=== PATIENT | female | born 1940 | race Caucasian/White ===

== ENCOUNTER 2019-06-10 04:48 | Inpatient (IN) ==
--- NOTE | 2019-06-05 08:20 | EKG Report ---
Test Performed on : 06/05/2019 07:29:07 AM Test Reason : PAT Blood Pressure : / mmHG Vent. Rate : 089 BPM Atrial Rate : 089 BPM P-R Int : 152 ms QRS Dur : 084 ms QT Int : 348 ms P-R-T Axes : 079 082 078 degrees QTc Int : 423 ms Normal sinus rhythm. Possible Left atrial enlargement Septal infarct , age undetermined Abnormal ECG No previous ECGs available Confirmed by Alejandro HUYNH, Tye ([id number]) on 06/05/2019 9:12:17 AM
[2019-06-05 08:22] LABS: URINE SOURCE CLEAN CATCH
[2019-06-05 08:36] LABS: BASO# 0.03 X1000 (0.0-0.2); BASO% 0.4 % (0.0-0.8); EOS# 0.22 X1000 (0.0-0.7); EOS% 2.8 % (0.0-10.0); HEMATOCRIT 38.5 % (37.0-47.0); HEMOGLOBIN 12.8 g/dL (12.0-16.0); IMM GRAN# 0.02 X1000 (0.0-0.04); IMM GRAN% 0.3 % (0.0-0.5); LYMPH# 2.26 X1000 (1.2-3.4); LYMPH% 28.3 % (20.5-51.1); MCHC 33.2 g/dL (33-37); MCV 90.2 FL (81-99); MONO# 0.63 X1000 (0.11-0.59); MONO% 7.9 % (1.7-9.3); MPV 9.7 FL (7.4-10.4); NEUT# 4.82 X1000 (1.4-6.5); NEUT% 60.3 % (42.2-75.2); PLT 289 X1000 (130-400); RBC 4.27 XMIL (4.2-5.4); RDW 13.7 % (11.5-14.5); WBC 7.98 X1000 (4.8-10.8)
[2019-06-05 08:42] LABS: BILIRUBIN URINE NEGATIVE (NEGATIVE); BLOOD URINE NEGATIVE (NEGATIVE); COLOR YELLOW; GLUCOSE URINE NEGATIVE (NEGATIVE); KETONE URINE NEGATIVE (NEGATIVE); LEUKOCYTES URINE NEGATIVE (NEGATIVE); NITRITE URINE NEGATIVE (NEGATIVE); PROTEIN URINE NEGATIVE (NEGATIVE); SP GRAVITY URINE 1.019; TURBIDITY URINE CLEAR (CLEAR); UROBILINOGEN URINE NORMAL (NORMAL)
[2019-06-05 08:45] LABS: INR 0.85; PROTIME 12.3 Seconds (11.0-16.0); PTT 28.9 Seconds (22.3-41.8); UR EPITHELIAL CELLS <10 /HPF (<10); URINE BACTERIA NEGATIVE /HPF; URINE RBC <10 /HPF (<10); URINE WBC <10 /HPF (<10)
[2019-06-05 08:52] LABS: HEMOGLOBIN A1C 5.5 % (4.8-6.0)
[2019-06-05 08:53] LABS: AGAP 10; ALBUMIN 4.5 g/dL (3.5-5.0); BUN 12 mg/dL (8-22); CALCIUM 9.5 mg/dL (8.8-10.2); CHLORIDE 98 mmol/L (98-107); COSMO 268; CREATININE 0.8 mg/dL (0.5-0.9); ESTIMATED GFR > 60; GLUCOSE 93 mg/dL (70-104); POTASSIUM 4.4 mmol/L (3.5-5.1); SODIUM 134 mmol/L (136-145); TCO2 26 mmol/L (25-35)
[2019-06-10] MEDS ORDERED: REGLAN ONE (09:03)
[2019-06-10] MEDS ORDERED: COLACE ONE (09:03)
[2019-06-10] MEDS ORDERED: PEPCID ONE (09:03)
[2019-06-10] MEDS ORDERED: CELEBREX ONE (09:04)
[2019-06-10] MEDS ORDERED: LYRICA ONE (09:04)
[2019-06-10] MEDS ORDERED: KEFZOL 1 GM/D5W 1 GM/50 ML IVPB ONE (09:04)
[2019-06-10] MEDS ORDERED: 1/2 NS 500 ML ONE (09:04)
[2019-06-10] MEDS ORDERED: XYLOCAINE-MPF 2% ONE (09:05)
[2019-06-10] MEDS ORDERED: ROBINUL ONE (09:05)
[2019-06-10] MEDS ORDERED: DECADRON ONE (09:10)
[2019-06-10] MEDS ORDERED: FENTANYL ONE (09:27)
[2019-06-10] MEDS ORDERED: SODIUM CHLORIDE 0.9% 10 ML ONE (09:54)
[2019-06-10] MEDS ORDERED: DIPRIVAN 1% 500 MG/50 ML BOTTLE ONE (10:26)
[2019-06-10] MEDS ORDERED: DURAMORPH ONE (10:37)
[2019-06-10] MEDS ORDERED: TORADOL ONE (10:37)
[2019-06-10] MEDS ORDERED: MARCAINE 0.25% PF ONE (10:38)
[2019-06-10] MEDS ORDERED: CYKLOKAPRON 1,000 MG/NS 1,000 MG/100 ML IVPB ONE (10:38)
[2019-06-10] MEDS ORDERED: NEOSPORIN G.U. IRRIGANT ONE (10:38)
[2019-06-10] MEDS ORDERED: EXPAREL 1.3% ONE (10:38)
[2019-06-10] MEDS ORDERED: SODIUM CHLORIDE 0.9% ONE (10:38)
[2019-06-10] MEDS ORDERED: VERSED ONE (10:58)
[2019-06-10] MEDS ORDERED: ZOFRAN ONE (12:02)
[2019-06-10] MEDS ORDERED: OFIRMEV 1000 MG/ISOTONIC SOLN 1,000 MG/100 ML BOTTLE ONE (12:02)
[2019-06-10 12:57] LABS: URINE SOURCE CATH
[2019-06-10 13:02] LABS: BILIRUBIN URINE NEGATIVE (NEGATIVE); BLOOD URINE NEGATIVE (NEGATIVE); COLOR YELLOW; GLUCOSE URINE NEGATIVE (NEGATIVE); KETONE URINE 20 mg/dL (NEGATIVE); LEUKOCYTES URINE NEGATIVE (NEGATIVE); NITRITE URINE NEGATIVE (NEGATIVE); PH URINE 6.5; PROTEIN URINE NEGATIVE (NEGATIVE); SP GRAVITY URINE 1.009; TURBIDITY URINE CLEAR (CLEAR); UROBILINOGEN URINE NORMAL (NORMAL)
[2019-06-10 13:03] LABS: UR EPITHELIAL CELLS <10 /HPF (<10); URINE BACTERIA NEGATIVE /HPF; URINE RBC <10 /HPF (<10); URINE WBC <10 /HPF (<10)
[2019-06-10] MEDS ORDERED: NS 1,000 ML ONE (14:06)
[2019-06-10] MEDS ORDERED: MILK OF MAGNESIA PO PRN (15:45)
[2019-06-10] MEDS ORDERED: OXY IR PO PRN ×2 (15:45)
[2019-06-10] MEDS ORDERED: ZOFRAN IV PRN (15:45)
[2019-06-10] MEDS ORDERED: ZOFRAN ODT PO PRN (15:45)
[2019-06-10] MEDS ORDERED: MORPHINE IV PRN ×3 (15:45)
[2019-06-10] MEDS ORDERED: CYKLOKAPRON 1,000 MG in NS 100 ML IV ONE (18:10)
[2019-06-10] MEDS ORDERED: REQUIP PO SCH (19:15)
[2019-06-10] MEDS ORDERED: BONIVA IV SCH (19:15)
--- NOTE | 2019-06-10 20:32 | OPERATIVE NOTE ---
PROCEDURE DATE: 06/10/2019 PREOPERATIVE DIAGNOSIS: Right hip degenerative joint disease. POSTOPERATIVE DIAGNOSIS: Right hip degenerative joint disease. PROCEDURE PERFORMED: Right anterior total hip arthroplasty using a [facility] size 10 standard offset stem with a neutral neck length 36 mm head, a 50 hemispherical shell, two 6.5 cancellous screws of 40 and 25 mm, and a 36 mm inside diameter liner. ANESTHESIA: Spinal. SURGEON: Atif Jimenez MD. ASSISTANTS: ANGELA Pinzon. COMPLICATIONS: None. BLOOD LOSS: Minimal. DRAINS: Hemovac x 1. DESCRIPTION OF PROCEDURE: The patient was brought to the operative suite and placed in the supine position. After successful administration of spinal anesthesia the patient was placed on the OSI table in the usual position for right hip. The right hip was then prepped and draped in the usual sterile fashion. A longitudinal incision was made beginning 3 cm distal and 3 cm lateral to the anterior superior iliac spine, seen distally and slightly laterally 8 cm, dissected sharply through the skin and subcutaneous tissue down to the tensor fascia. The tensor fascia was incised and dissected bluntly down to deep tensor fascia. The deep tensor fascia was incised and the circumflex vessels were electrocauterized exposing the anterior capsule. A T capsulotomy was performed exposing the femoral neck. A femoral neck cut was made with an oscillating saw. The femoral head was removed with a power corkscrew. The labrum was resected. The acetabulum was serially reamed to a 52 to accept a 52 cup. The 52 cup was then driven into place in the proper amount of inclination and anteversion, and two 6.5 cancellous screws were placed, a 40 mm superiorly and a 25 mm posterior superiorly, and then a 36 mm inside diameter acetabular liner was locked onto the shell. Attention was directed to the femur, it was externally rotated, extended, adducted, and elevated out of the wound with the hook on the OSI bed. The lateral neck was rongeured. The canal was serially broached to a size 10. A size 10 standard offset neutral neck length was trialed and found be excellent leg length to offset fit and feel of the stem and stability of the hip. The trial was removed. Definitive stem was seated on the femur. The ceramic head was seated onto the Donahue taper and then the hip was reduced, it was again found to be in excellent position. The hip was copiously infiltrated with Exparel, including the posterior capsule, anterior capsule, anterior musculature and subcutaneous tissue. The hip was copiously irrigated with normal saline containing irrigant and Vashe irrigation. A drain was placed deep to the tensor fascia and buried around the stem neck. The anterior capsule was repaired with 0 V- Loc. The tensor fascia was repaired with 0 V-Loc. The skin edge was approximated with 2-0 Vicryl and 4 Monocryl and then closed with Prineo. A sterile dressing was applied. The patient tolerated the procedure well without complications. At the end of the procedure all counts were correct x2. The patient was transferred to the recovery room in stable condition. cc: Atif Jimenez MD MTDD
[2019-06-10] MEDS: KEFZOL 1 GM/D5W 1 GM/50 ML IVPB IV SCH (20:35)
[2019-06-10] MEDS: PERIDEX MT SCH (20:35)
[2019-06-10] MEDS: COLACE PO SCH (20:36)
[2019-06-10] MEDS: CELEBREX PO SCH (20:36)
[2019-06-10] MEDS: ULTRAM PO SCH (20:37)
[2019-06-10] MEDS: LYRICA PO SCH (20:37)
[2019-06-10] MEDS: CALTRATE 600 + D PO SCH (20:38)
[2019-06-10] MEDS: NS 1,000 ML IV SCH (20:39)
[2019-06-10] MEDS ORDERED: VITAMIN C PO SCH (21:00)
[2019-06-10] MEDS: TYLENOL PO SCH (21:00)
[2019-06-10] MEDS ORDERED: ZYRTEC PO SCH (21:00)
[2019-06-10] MEDS ORDERED: PRAVACHOL PO SCH (21:00)
[2019-06-10] MEDS ORDERED: GLUCOSAMINE 500 MG/CHONDROITIN 400 MG PO SCH (21:00)
[2019-06-11] MEDS: TYLENOL PO SCH ×2 (04:35→12:48)
[2019-06-11] MEDS: XARELTO PO SCH ×2 (04:35→06:28)
[2019-06-11] MEDS: ULTRAM PO SCH ×2 (04:35→12:39)
[2019-06-11] MEDS: KEFZOL 1 GM/D5W 1 GM/50 ML IVPB IV SCH (04:36)
[2019-06-11 06:07] LABS: HEMATOCRIT 29.6 % (37.0-47.0); HEMOGLOBIN 9.9 g/dL (12.0-16.0)
[2019-06-11 06:18] LABS: AGAP 13; BUN 9 mg/dL (8-22); CALCIUM 8.9 mg/dL (8.8-10.2); CHLORIDE 99 mmol/L (98-107); COSMO 270; CREATININE 0.6 mg/dL (0.5-0.9); ESTIMATED GFR > 60; GLUCOSE 129 mg/dL (70-104); POTASSIUM 4.3 mmol/L (3.5-5.1); SODIUM 135 mmol/L (136-145); TCO2 23 mmol/L (25-35)
[2019-06-11] MEDS: NS 1,000 ML IV SCH (06:28)
[2019-06-11 07:29] VITALS: BP 143/60
[2019-06-11] MEDS ORDERED: DECADRON IV ONE (09:00)
[2019-06-11] MEDS ORDERED: CENTRUM SILVER PO SCH (09:00)
[2019-06-11] MEDS ORDERED: VITAMIN D PO SCH (09:00)
[2019-06-11] MEDS ORDERED: VICON-C PO SCH (09:00)
[2019-06-11] MEDS ORDERED: OCUVITE LUTEIN & ZEAXANTHIN PO SCH (09:00)
[2019-06-11] MEDS ORDERED: SINGULAIR PO SCH (09:00)
[2019-06-11] MEDS ORDERED: PAXIL PO SCH (09:00)
[2019-06-11] MEDS ORDERED: PEPCID PO SCH (09:00)
[2019-06-11] MEDS: CELEBREX PO SCH (12:38)
[2019-06-11] MEDS: LYRICA PO SCH (12:38)
[2019-06-11] MEDS: CALTRATE 600 + D PO SCH (12:38)
[2019-06-11] MEDS: COLACE PO SCH (12:38)
[2019-06-11] MEDS: PERIDEX MT SCH (12:39)
--- NOTE | 2019-06-11 20:41 | DISCHARGE SUMMARY ---
ADMISSION DATE: 06/10/2019 DISCHARGE DATE: 06/11/2019 DISCHARGE DIAGNOSIS: Right hip degenerative joint disease status post right anterior total hip arthroplasty. DISCHARGE MEDICATIONS: See discharge medication list. DISPOSITION: The patient was discharged home with home health physical therapy. Instructed to return for any signs or symptoms of infection, paresthesias or thrombosis. Instructed to return to see Dr. Jimenez next . HOSPITAL COURSE: On the day of admission, patient underwent a right anterior total hip arthroplasty. Her postoperative course was unremarkable. At discharge, she is afebrile, tolerating a regular diet, ambulating well with physical therapy. Her wound was clean, dry, intact without sign of infection. Her calf is soft without sign of DVT. She is discharged home in stable condition and instructed to follow up as described above. cc: Atif Jimenez MD
[2019-06-14] MEDS ORDERED: VITAMIN D PO SCH (09:00)
== END 2019-06-11 13:22 | disposition home health service (06) | DRG 470 ==
LOC: SURHOLD 04:48 → 4N 12:23
PROVIDERS: ADMIT Orthopaedic Surgery; ATTEND Orthopaedic Surgery
CPT/HCPCS: 73723; 76000; 80048; 81001; 82040; 83036; 85014; 85018; 85025; 85610; 85730; 86850; 86900; 86901; 88304; 88311; 93005; 93010; 94799; 97110; 97116; 97162; 97530; A9270; A9579; C9290; J0131; J0690; J1100; J1885; J2250; J2274; J2275; J2405; J3010; J7030; Q9974; S0020

== ENCOUNTER 2019-06-20 10:40 | Inpatient (IN) ==
[2019-06-20] MEDS ORDERED: MORPHINE IV PRN (11:55)
[2019-06-20] MEDS: OXY IR PO PRN ×2 (12:49→21:28)
[2019-06-20 13:07] LABS: AGAP 14; BUN 10 mg/dL (8-22); CALCIUM 9.4 mg/dL (8.8-10.2); CHLORIDE 95 mmol/L (98-107); COSMO 270; CREATININE 0.5 mg/dL (0.5-0.9); ESTIMATED GFR > 60; GLUCOSE 116 mg/dL (70-104); POTASSIUM 4.3 mmol/L (3.5-5.1); SODIUM 135 mmol/L (136-145); TCO2 26 mmol/L (25-35)
[2019-06-20 13:13] LABS: BASO# 0.04 X1000 (0.0-0.2); BASO% 0.4 % (0.0-0.8); EOS# 0.19 X1000 (0.0-0.7); EOS% 1.8 % (0.0-10.0); HEMATOCRIT 26.2 % (37.0-47.0); HEMOGLOBIN 8.4 g/dL (12.0-16.0); LYMPH# 2.29 X1000 (1.2-3.4); LYMPH% 21.8 % (20.5-51.1); MCH 30.3 PG (27-31); MCHC 32.1 g/dL (33-37); MCV 94.6 FL (81-99); MONO# 0.87 X1000 (0.11-0.59); MONO% 8.3 % (1.7-9.3); MPV 8.4 FL (7.4-10.4); NEUT# 7.11 X1000 (1.4-6.5); NEUT% 67.7 % (42.2-75.2); PLT 571 X1000 (130-400); RBC 2.77 XMIL (4.2-5.4); RDW 14.5 % (11.5-14.5)
[2019-06-20 13:15] LABS: EOS 2 % (1-10); LYMPHS 10 % (21-51); MONO 2 % (1-9); SEGS 86 % (42-75)
[2019-06-20] MEDS ORDERED: VITAMIN D PO SCH (13:15)
[2019-06-20] MEDS: LR 1,000 ML IV SCH (13:39)
[2019-06-20 13:48] LABS: URINE SOURCE CATH
[2019-06-20 13:54] LABS: BILIRUBIN URINE NEGATIVE (NEGATIVE); BLOOD URINE NEGATIVE (NEGATIVE); COLOR YELLOW; GLUCOSE URINE NEGATIVE (NEGATIVE); KETONE URINE TRACE mg/dL (NEGATIVE); LEUKOCYTES URINE NEGATIVE (NEGATIVE); NITRITE URINE NEGATIVE (NEGATIVE); PROTEIN URINE NEGATIVE (NEGATIVE); TURBIDITY URINE CLEAR (CLEAR); UR EPITHELIAL CELLS <10 /HPF (<10); URINE BACTERIA NEGATIVE /HPF; URINE RBC <10 /HPF (<10); URINE WBC <10 /HPF (<10); UROBILINOGEN URINE NORMAL (NORMAL)
[2019-06-20] MEDS: ULTRAM PO SCH ×2 (14:08→20:29)
[2019-06-20] MEDS: REQUIP PO SCH (18:19)
[2019-06-20] MEDS: CELEBREX PO SCH (20:28)
[2019-06-20] MEDS: GLUCOSAMINE 500 MG/CHONDROITIN 400 MG PO SCH (20:28)
[2019-06-20] MEDS: COLACE PO SCH (20:28)
[2019-06-20] MEDS: CALTRATE 600 + D PO SCH (20:28)
[2019-06-20] MEDS: TYLENOL PO SCH (20:29)
[2019-06-20] MEDS: LYRICA PO SCH (20:34)
[2019-06-21] MEDS: LR 1,000 ML IV SCH ×2 (03:13→15:42)
[2019-06-21] MEDS: ULTRAM PO SCH ×3 (03:13→15:53)
[2019-06-21] MEDS ORDERED: XARELTO PO SCH (06:00)
[2019-06-21] MEDS ORDERED: REQUIP PO SCH (09:00)
[2019-06-21] MEDS ORDERED: CHOLECALCIFEROL PO SCH (09:00)
[2019-06-21 10:11] LABS: URINE SOURCE CATH
[2019-06-21 10:24] LABS: BILIRUBIN URINE NEGATIVE (NEGATIVE); BLOOD URINE NEGATIVE (NEGATIVE); COLOR STRAW; GLUCOSE URINE NEGATIVE (NEGATIVE); KETONE URINE NEGATIVE (NEGATIVE); LEUKOCYTES URINE NEGATIVE (NEGATIVE); NITRITE URINE NEGATIVE (NEGATIVE); PH URINE 7.5; PROTEIN URINE NEGATIVE (NEGATIVE); SP GRAVITY URINE 1.007; TURBIDITY URINE CLEAR (CLEAR); UROBILINOGEN URINE NORMAL (NORMAL)
[2019-06-21 10:25] LABS: UR EPITHELIAL CELLS <10 /HPF (<10); URINE BACTERIA NEGATIVE /HPF; URINE RBC <10 /HPF (<10); URINE WBC <10 /HPF (<10)
[2019-06-21] MEDS: PEPCID PO SCH (12:18)
[2019-06-21] MEDS: CALTRATE 600 + D PO SCH (15:49)
[2019-06-21] MEDS: VITAMIN C PO SCH (15:55)
[2019-06-21] MEDS: ZYRTEC PO SCH (15:55)
[2019-06-21] MEDS: VICON-C PO SCH (15:56)
[2019-06-21] MEDS: TYLENOL PO SCH (15:56)
[2019-06-21] MEDS: REQUIP PO SCH (15:56)
[2019-06-21] MEDS: SINGULAIR PO SCH (15:56)
[2019-06-21] MEDS: THERA M PLUS PO SCH (15:56)
[2019-06-21] MEDS: OXY IR PO PRN (17:40)
[2019-06-21] MEDS: CELEBREX PO SCH (17:41)
[2019-06-21] MEDS: PAXIL PO SCH (17:43)
[2019-06-21] MEDS: PRAVACHOL PO SCH (17:43)
[2019-06-21] MEDS: LYRICA PO SCH (17:45)
[2019-06-21] MEDS: GLUCOSAMINE 500 MG/CHONDROITIN 400 MG PO SCH (17:45)
[2019-06-21] MEDS: PATIENT'S OWN MED PO SCH (17:45)
[2019-06-21] MEDS: COLACE PO SCH (17:45)
[2019-06-21] MEDS ORDERED: XYLOCAINE-MPF 2% ONE (19:16)
[2019-06-21] MEDS ORDERED: DIPRIVAN 1% ONE (19:16)
[2019-06-21] MEDS ORDERED: DURAMORPH ONE (19:56)
[2019-06-21] MEDS ORDERED: MARCAINE 0.5% PF ONE (19:57)
[2019-06-21] MEDS ORDERED: SODIUM CHLORIDE 0.9% ONE (19:57)
[2019-06-21] MEDS ORDERED: TORADOL ONE (19:57)
[2019-06-21] MEDS ORDERED: EXPAREL 1.3% ONE (19:58)
[2019-06-21] MEDS ORDERED: KEFZOL 2 GM/D5W 2 GM/50 ML IVPB ONE (20:10)
[2019-06-21] MEDS ORDERED: FENTANYL ONE (20:41)
[2019-06-21] MEDS ORDERED: DECADRON ONE (20:57)
[2019-06-21] MEDS ORDERED: ZOFRAN ONE (20:57)
[2019-06-21] MEDS ORDERED: OFIRMEV 1000 MG/ISOTONIC SOLN 1,000 MG/100 ML BOTTLE ONE (20:57)
[2019-06-21] MEDS ORDERED: NEOSPORIN G.U. IRRIGANT ONE (20:59)
[2019-06-21] MEDS ORDERED: SODIUM CHLORIDE 0.9% 10 ML ONE (21:54)
[2019-06-21] MEDS ORDERED: NEO-SYNEPHRINE ONE (21:54)
[2019-06-21] MEDS ORDERED: NS 1,000 ML ONE (22:07)
--- NOTE | 2019-06-21 22:48 | OPERATIVE NOTE ---
PROCEDURE DATE: 06/21/2019 PREOPERATIVE DIAGNOSIS: Right periprosthetic femur fracture. POSTOP DIAGNOSIS: Right periprosthetic femur fracture. PROCEDURE: Right periprosthetic femur fracture open reduction, internal fixation and revision of total hip arthroplasty, femoral component and head using a [facility] long [place] stem with a -2.5 [place] chrome head. ANESTHESIA: General. SURGEON: Atif Jimenez MD. LOG YARD MANAGER: Isaac. COMPLICATIONS: None. BLOOD LOSS: 650. DRAINS: Hemovac x1. DESCRIPTION OF PROCEDURE: The patient was brought to the operative suite and placed in supine position. After successful administration of general anesthesia, the patient was placed on the OSI table in the usual position for right hip. The right hip was then prepped and draped in usual sterile fashion. The previous incision was opened and lengthened distally and then the subcutaneous tissues were removed. The V-Loc suture from the fascia was removed and then dissected down to the anterior capsule. The anterior capsule V-Loc was removed exposing the stem. The head was dislocated and then the loose stem was removed. The medial calcar with the lesser trochanter was reduced to the femur and once it was well reduced, 2 cables were placed and tightened. Excellent reduction of the fracture was obtained. The hip was then externally rotated, extended, adducted, and elevated out of the wound with the hook on the OSI bed. It was reamed to a size 14 and then canal was serially broached to a size 14. It was trialed standard offset -2.5 was found to be excellent leg length, stability of the hip and offset and fit and fill of the stem. The trial was removed after using a calcar planer and then the femoral component was driven into place. Once it was seated, the Donahue taper was cleaned and the cobalt chrome head was - 2, 36 mm in diameter, was seated onto the Donahue taper and the hip was reduced. It was again found to be in excellent position. The hip was copiously irrigated with normal saline containing irrigant, a Vashe irrigation. Anterior capsule was repaired with #1 Vicryl. The tensor fascia was closed with a running V-Loc suture. The skin edge approximated with 2-0 Vicryl. Skin was closed with Monocryl and a Prineo and a sterile dressing. A drain was placed deep to the tensor fascia prior to closing the fascia and buried around the stem neck. The patient tolerated the procedure well without complication. At the end of the procedure all counts correct. The patient was transferred to the recovery room in stable condition. cc: Atif Jimenez MD MTDD
[2019-06-21] MEDS: DILAUDID ONE ×4 (22:52→23:47)
[2019-06-21] MEDS ORDERED: PHENERGAN ONE (23:18)
[2019-06-22] MEDS ORDERED: NS 1,000 ML IV SCH (00:45)
[2019-06-22] MEDS ORDERED: ULTRAM PO SCH (00:45)
[2019-06-22] MEDS ORDERED: ZOFRAN ODT PO PRN (00:45)
[2019-06-22] MEDS ORDERED: ZOFRAN IV PRN (00:45)
[2019-06-22] MEDS ORDERED: MORPHINE IV PRN ×3 (00:45)
[2019-06-22] MEDS ORDERED: MILK OF MAGNESIA PO PRN (00:45)
[2019-06-22] MEDS ORDERED: OXY IR PO PRN ×2 (00:45)
[2019-06-22] MEDS: CELEBREX PO SCH ×3 (01:04→22:08)
[2019-06-22] MEDS: TYLENOL PO SCH ×4 (01:04→22:09)
[2019-06-22] MEDS: COLACE PO SCH ×3 (01:05→22:08)
[2019-06-22] MEDS: CALTRATE 600 + D PO SCH ×3 (01:05→22:09)
[2019-06-22] MEDS: GLUCOSAMINE 500 MG/CHONDROITIN 400 MG PO SCH ×3 (01:05→22:20)
[2019-06-22] MEDS: ULTRAM PO SCH ×5 (01:06→22:09)
[2019-06-22] MEDS: LYRICA PO SCH ×3 (01:12→22:09)
[2019-06-22] MEDS: KEFZOL 1 GM/D5W 1 GM/50 ML IVPB IV SCH ×2 (04:21→15:57)
[2019-06-22 06:23] LABS: HEMATOCRIT 27.9 % (37.0-47.0); HEMOGLOBIN 9.1 g/dL (12.0-16.0)
[2019-06-22 07:16] LABS: AGAP 12; BUN 7 mg/dL (8-22); CALCIUM 8.2 mg/dL (8.8-10.2); CHLORIDE 98 mmol/L (98-107); COSMO 272; CREATININE 0.4 mg/dL (0.5-0.9); ESTIMATED GFR > 60; GLUCOSE 173 mg/dL (70-104); POTASSIUM 4.3 mmol/L (3.5-5.1); SODIUM 135 mmol/L (136-145); TCO2 25 mmol/L (25-35)
[2019-06-22] MEDS ORDERED: CELEBREX PO SCH (09:00)
[2019-06-22] MEDS ORDERED: PEPCID PO SCH (09:00)
[2019-06-22] MEDS ORDERED: LYRICA PO SCH (09:00)
[2019-06-22] MEDS ORDERED: COLACE PO SCH (09:00)
[2019-06-22] MEDS: REQUIP PO SCH (10:45)
[2019-06-22] MEDS: ZYRTEC PO SCH (10:46)
[2019-06-22] MEDS: VICON-C PO SCH (10:46)
[2019-06-22] MEDS: PRAVACHOL PO SCH (10:47)
[2019-06-22] MEDS: VITAMIN C PO SCH (10:48)
[2019-06-22] MEDS: PEPCID PO SCH (10:48)
[2019-06-22] MEDS: THERA M PLUS PO SCH (10:48)
[2019-06-22] MEDS: SINGULAIR PO SCH (10:48)
[2019-06-22] MEDS: PATIENT'S OWN MED PO SCH (10:49)
[2019-06-22] MEDS: PAXIL PO SCH (10:49)
--- NOTE | 2019-06-22 15:22 | ORTHOPAEDICS PROGRESS NOTE ---
DATE: 06/22/2019 SUBJECTIVE: Willow Elise is a 78-year-old female who is postoperative day 1 from revision of right total hip arthroplasty. She has no complaints. She states she is very comfortable. She has minimal pain. OBJECTIVE: She is a well-developed, well-nourished female. She is alert, oriented, and cooperative exam. Her wound is clean, dry, intact without sign of infection. Her vital signs are stable. She is afebrile. She is able to perform a straight leg raise as well as bend her knee. She has intact sensation to light touch in her foot. She has some mild swelling about her leg. Her hemoglobin is 9.1. Her hematocrit is 27.9. She has had 165 mL of drainage from her drain. ASSESSMENT: Stable right hip after revision. PLAN: We will discontinue her drain and IV fluids as well as change the dressing over her drain and we will discontinue her Rainey when she is able to ambulate to the bedside commode. cc: Atif Jimenez MD
[2019-06-23] MEDS: TYLENOL PO SCH ×6 (00:26→21:54)
[2019-06-23] MEDS: XARELTO PO SCH ×2 (04:58→05:06)
[2019-06-23] MEDS: ULTRAM PO SCH ×4 (04:58→21:55)
[2019-06-23 07:08] LABS: HEMATOCRIT 23.9 % (37.0-47.0); HEMOGLOBIN 7.7 g/dL (12.0-16.0)
[2019-06-23] MEDS ORDERED: DECADRON IV ONE (09:00)
[2019-06-23] MEDS ORDERED: NS 500 ML IV ONE (09:44)
[2019-06-23] MEDS: PEPCID PO SCH (10:40)
--- NOTE | 2019-06-23 10:40 | ORTHOPAEDICS PROGRESS NOTE ---
DATE: 06/23/2019 SUBJECTIVE: Willow Elise is a 78-year-old female who is postoperative day 2 from a revision of her right hip. She states she has improved and has minimal pain. OBJECTIVE: She is a well-developed, well-nourished female. She is sitting in a chair. She is alert and oriented. Her vital signs are stable. She is afebrile. She has mild drainage from her wound and drainage site, and some mild swelling, but otherwise her leg is neurovascularly intact without sign of infection or deep venous thrombosis. LABORATORY DATA: Her hematocrit is 23.9. Her hemoglobin is 7.7. ASSESSMENT: Right revision of hip with acute blood loss anemia. PLAN: I am going to go ahead and transfuse her 2 units today. She will hopefully be ready for rehab the first part of the week. cc: Atif iJmenez MD
[2019-06-23] MEDS: CALTRATE 600 + D PO SCH ×2 (10:41→21:55)
[2019-06-23] MEDS: LYRICA PO SCH ×2 (10:41→21:54)
[2019-06-23] MEDS: CELEBREX PO SCH ×2 (10:41→21:54)
[2019-06-23] MEDS: COLACE PO SCH ×2 (10:41→21:54)
[2019-06-23] MEDS: GLUCOSAMINE 500 MG/CHONDROITIN 400 MG PO SCH ×2 (10:42→21:54)
[2019-06-23] MEDS: PATIENT'S OWN MED PO SCH (10:42)
[2019-06-23] MEDS: SINGULAIR PO SCH (10:42)
[2019-06-23] MEDS: PRAVACHOL PO SCH (10:42)
[2019-06-23] MEDS: PAXIL PO SCH (10:42)
[2019-06-23] MEDS: ZYRTEC PO SCH (10:43)
[2019-06-23] MEDS: VITAMIN C PO SCH (10:43)
[2019-06-23] MEDS: THERA M PLUS PO SCH (10:43)
[2019-06-23] MEDS: VICON-C PO SCH (10:43)
[2019-06-23] MEDS: REQUIP PO SCH (16:35)
[2019-06-24] MEDS: ULTRAM PO SCH ×4 (03:59→21:51)
[2019-06-24] MEDS: TYLENOL PO SCH ×5 (03:59→21:50)
[2019-06-24] MEDS: XARELTO PO SCH ×2 (04:00→07:36)
[2019-06-24 06:21] LABS: HEMATOCRIT 29.6 % (37.0-47.0); HEMOGLOBIN 9.8 g/dL (12.0-16.0)
--- NOTE | 2019-06-24 08:22 | Diag Imaging Result Doc PS360 ---
EXAM: CHEST-1 VIEW HISTORY: REHAB TECHNIQUE: Chest single view COMPARISON: 11/18/2015 FINDINGS: The lungs are well expanded. The heart is not enlarged. The vessels are not distended. There are no infiltrates. No effusion identified. There are breast implants and surgical clips in the left axilla. There has been surgery to the lower neck. Likely tiny granuloma in the upper outer left lung. IMPRESSION: Negative exam. Electronically signed by Amador Holley 06/24/2019 8:19 AM
[2019-06-24] MEDS: CALTRATE 600 + D PO SCH ×2 (08:23→21:52)
[2019-06-24] MEDS: CELEBREX PO SCH ×2 (08:23→21:50)
[2019-06-24] MEDS: COLACE PO SCH ×2 (08:23→21:52)
[2019-06-24] MEDS: PEPCID PO SCH (08:25)
[2019-06-24] MEDS: LYRICA PO SCH ×2 (08:25→21:52)
[2019-06-24] MEDS: PAXIL PO SCH (08:25)
[2019-06-24] MEDS: GLUCOSAMINE 500 MG/CHONDROITIN 400 MG PO SCH ×2 (08:27→21:53)
[2019-06-24] MEDS: SINGULAIR PO SCH (08:28)
[2019-06-24] MEDS: VICON-C PO SCH (08:28)
[2019-06-24] MEDS: PRAVACHOL PO SCH (08:28)
[2019-06-24] MEDS: THERA M PLUS PO SCH (08:28)
[2019-06-24] MEDS: VITAMIN C PO SCH (08:29)
[2019-06-24] MEDS: ZYRTEC PO SCH (08:30)
[2019-06-24] MEDS ORDERED: VITAMIN D PO SCH (09:00)
[2019-06-24] MEDS: MIRALAX PO SCH (09:05)
[2019-06-24] MEDS: PATIENT'S OWN MED PO SCH (14:13)
[2019-06-24] MEDS: REQUIP PO SCH (15:38)
--- NOTE | 2019-06-24 15:53 | ORTHOPAEDICS PROGRESS NOTE ---
DATE: 06/24/2019 SUBJECTIVE: Willow Elise is a 78-year-old female, postoperative day 3 from revision of her right hip. She has no complaints. She is sitting in a chair. OBJECTIVE: She is a well-developed, well-nourished female. She is cooperative with exam. Her hemoglobin is 9.8. Her hematocrit is 29.6. She walked down the [place] without difficulty today. She is ready for rehab when a bed was available. ASSESSMENT: Stable right hip revision. PLAN: We will send her to rehab once a bed becomes available. cc: Atif Jimenez MD
[2019-06-25] MEDS: TYLENOL PO SCH ×2 (04:32→11:36)
[2019-06-25] MEDS: XARELTO PO SCH ×2 (04:32→06:57)
[2019-06-25] MEDS: ULTRAM PO SCH ×2 (04:32→11:41)
[2019-06-25] MEDS ORDERED: PATIENT'S OWN MED IV SCH (09:00)
--- NOTE | 2019-06-25 09:00 | DISCHARGE SUMMARY ---
ADMISSION DATE: 06/20/2019 DISCHARGE DATE: 06/25/2019 DISCHARGE DIAGNOSIS: Right hip periprosthetic fracture, status post open reduction internal fixation and revision of femoral stem. DISCHARGE MEDICATIONS: See discharge medication list. DISPOSITION: Patient discharged to rehab with instructions for touchdown to partial weightbearing right lower extremity. Instructed to return for any signs or symptoms of infection or deep venous thrombosis. Instructed to leave the gauze in place on the anterior incision, but it can be washed with soap and water. She can take a shower with assistance. Place a dressing over the drain hole if it is draining at all. Also place a dressing over the gauze wound, just to keep it from getting moist. She is to return to see me next Monday. She is to return for any signs or symptoms of infection or deep venous thrombosis. cc: Atif Jimenez MD
[2019-06-25 11:34] VITALS: BP 165/72
[2019-06-25] MEDS: SINGULAIR PO SCH (11:35)
[2019-06-25] MEDS: COLACE PO SCH (11:36)
[2019-06-25] MEDS: CELEBREX PO SCH (11:36)
[2019-06-25] MEDS: PEPCID PO SCH (11:36)
[2019-06-25] MEDS: CALTRATE 600 + D PO SCH (11:37)
[2019-06-25] MEDS: MIRALAX PO SCH (11:37)
[2019-06-25] MEDS: PATIENT'S OWN MED PO SCH (11:37)
[2019-06-25] MEDS: PAXIL PO SCH (11:37)
[2019-06-25] MEDS: THERA M PLUS PO SCH (11:38)
[2019-06-25] MEDS: ZYRTEC PO SCH (11:38)
[2019-06-25] MEDS: PRAVACHOL PO SCH (11:38)
[2019-06-25] MEDS: VITAMIN C PO SCH (11:38)
[2019-06-25] MEDS: VICON-C PO SCH (11:38)
[2019-06-25] MEDS: LYRICA PO SCH (11:40)
[2019-06-26] MEDS ORDERED: PATIENT'S OWN MED IV SCH (09:00)
== END 2019-06-25 13:36 | DRG 467 ==
LOC: DIRADM 10:40 → 4N 11:20
PROVIDERS: ADMIT Orthopaedic Surgery; ATTEND Orthopaedic Surgery